=== PATIENT | female | born 1950 | race Caucasian/White ===

== ENCOUNTER 2018-05-26 10:18 | Emergency (ER) | payer OTHER ==
[~2018-05-26] VITALS: Ht 162.6 cm; Wt 72.5 kg
[2018-05-26] MEDS ORDERED: ZOFRAN4 MG PO (12:13)
[2018-05-26] MEDS ORDERED: MOTRIN600 MG PO (12:13)
[2018-05-26 12:34] VITALS: BP 147/81
== END 2018-05-26 12:48 | disposition home or self-care (01) ==
LOC: EME 10:18
DX: S01.01XA Laceration without foreign body of scalp, initial encounter (principal); S06.0X0A Concussion without loss of consciousness, initial encounter; W22.09XA Striking against other stationary object, initial encounter; Y93.53 Activity, golf; Z23 Encounter for immunization; Z87.891 Personal history of nicotine dependence; Z88.0 Allergy status to penicillin
CPT/HCPCS: 70450; 99281; 99284